=== PATIENT | female | born 1980 | race African-American/Black ===

== ENCOUNTER 2024-07-18 07:34 | Emergency (ER) | payer MEDICAID ==
[~2024-07-18] VITALS: Ht 165.1 cm; Wt 72.0 kg
[2024-07-18 07:52] VITALS: BP 150/106; TEMP 98.3; O2SAT 100
[2024-07-18 07:54] VITALS: PULSE 81; RESP 18; O2SAT 98
[2024-07-18] MEDS ORDERED: CLIN-194 MT (09:13)
[2024-07-18] MEDS ORDERED: MUPI1OIN4 TP (09:13)
== END 2024-07-18 09:35 | disposition home or self-care (01) ==
LOC: ER 08:32
DX: M79.604 Pain in right leg (principal); M79.605 Pain in left leg; E78.00 Pure hypercholesterolemia, unspecified; F20.9 Schizophrenia, unspecified; I10 Essential (primary) hypertension; F43.10 Post-traumatic stress disorder, unspecified; W57.XXXA Bitten or stung by nonvenomous insect and other nonvenomous arthropods, initial encounter; Y93.89 Activity, other specified; Y92.89 Other specified places as the place of occurrence of the external cause; Y99.8 Other external cause status
CPT/HCPCS: 99283

== ENCOUNTER 2025-01-19 07:10 | Emergency (ER) | payer MEDICAID ==
[~2025-01-19] VITALS: Ht 165.1 cm; Wt 73.0 kg
[~2025-01-19 07:10] MED LIST: CLIN-194 MT; MUPI1OIN4 TP
[2025-01-19 07:35] VITALS: O2SAT 100
[2025-01-19] MEDS: HYDROCODONE/ACETAMINOPHEN 10/325MG TABLET PO ONE (08:51)
[2025-01-19 09:12] LABS: PLATELET 173 x1000/uL (130-400); RED BLOOD CELL COUNT 5.35 mill/uL (4.2-5.4); RED CELL DISTRIBUTION WIDTH 15.1 % (11.6-14.6)
[2025-01-19 09:28] LABS: CREATININE 0.9 mg/dL (0.6-1.0); UREA NITROGEN BLOOD 9 mg/dL (9-23)
[2025-01-19] MEDS: IOHEXOL-300 100 ML BOTTLE ONE (10:11)
[2025-01-19 10:32] VITALS: BP 130/68; PULSE 72; RESP 16; TEMP 36.8; O2SAT 100
== END 2025-01-19 10:35 | disposition home or self-care (01) ==
LOC: ER 07:10
DX: S66.902A Unspecified injury of unspecified muscle, fascia and tendon at wrist and hand level, left hand, initial encounter (principal); F20.9 Schizophrenia, unspecified; E78.00 Pure hypercholesterolemia, unspecified; I10 Essential (primary) hypertension; X58.XXXA Exposure to other specified factors, initial encounter; Y93.89 Activity, other specified; Y92.89 Other specified places as the place of occurrence of the external cause; Y99.8 Other external cause status
CPT/HCPCS: 80048; 81025; 85027; 36415; 73130; 74177; 29130; 99285; Q9967; Z7610

== ENCOUNTER 2025-03-03 20:36 | Emergency (ER) | payer MEDICAID ==
[~2025-03-03] VITALS: Ht 165.1 cm; Wt 73.0 kg
[2025-03-03 20:49] VITALS: O2SAT 99
[2025-03-03] MEDS ORDERED: ACETAMINOPHEN 500MG TABLET PO ONE (21:30)
[2025-03-03 22:05] VITALS: BP 144/98; PULSE 90; RESP 16; TEMP 37; O2SAT 98
[2025-03-03 23:50] VITALS: TEMP 98.6
[2025-03-03] MEDS: ACETAMINOPHEN 500MG TABLET PO NR (23:50)
[2025-03-04 00:01] LABS: HCG SCREEN NEGATIVE
== END 2025-03-04 00:13 | disposition home or self-care (01) ==
LOC: ER 20:36
DX: B34.9 Viral infection, unspecified (principal); E78.00 Pure hypercholesterolemia, unspecified; F20.9 Schizophrenia, unspecified; I10 Essential (primary) hypertension
CPT/HCPCS: 71045; 84703; 99284